=== PATIENT | female | born 1930 | race African-American/Black ===

== ENCOUNTER 2017-06-19 16:13 | Emergency (ER) | payer OTHER ==
[~2017-06-19] VITALS: Ht 167.6 cm; Wt 122.2 kg
[~2017-06-19 16:13] MED LIST: ADULT LOW DOSE81 M1 PO; ALPRAZOLAM0.25 M2 PO; ANTIVERT25 MG PO; ASPIR 8181 M1 PO; ATIVAN0.5 MG PO; BLOOD PRESSURE; BP PILL; CARDIZEM LA180 MG PO; FLONASE ALLERG9.9 ML BOTH NARES; LISINOPRIL10 MG PO; SIMVASTATIN10 MG PO; [UNRECOGNIZED DRUG - REMARK]
[2017-06-19 18:05] LABS: HEMATOCRIT 40.6 % (36.0-46.0); MCH 27.9 PG (29.0-34.0); MCHC 31.5 G/DL (30.0-36.0); MCV 88.6 FL (83-99); MEAN PLAT.VOLUME 10.5 uM^3 (9.5-12.4); PLATELET COUNT 237 K/uL (156-360); RBC DIS.WIDTH-CV 13.2 % (11.8-14.6); RBC DIS.WIDTH-SD 43.2 % (39-53); RED BLOOD COUNT 4.58 M/uL (3.80-5.20); WHITE BLOOD COUNT 7.3 K/uL (4.1-10.2)
[2017-06-19 18:15] LABS: CHLORIDE 111 mEq/L (99-109); POTASSIUM 5.3 mEq/L (3.7-5.4); SODIUM 146 mEq/L (136-147)
[2017-06-19 18:17] LABS: GLUCOSE 101 mg/dL (70-99)
[2017-06-19 18:19] LABS: ANION GAP 12 MEQ/L (2-14); TOTAL BILIRUBIN 0.4 mg/dL (0.0-1.0)
[2017-06-19 18:21] LABS: ALKALINE PHOSPHATASE 141 IU/L (3-129); GFR ESTIMATE (CALCULATED) 35 mL/min/
[2017-06-19 18:22] LABS: UREA NITROGEN (BUN) 32 mg/dL (9-23)
[2017-06-19 18:30] LABS: TROP-I INTERPRETATION NEGATIVE; TROPONIN-I < 0.01 ng/mL (0.0-0.30)
[2017-06-19 20:05] LABS: ADD MIUA? YES; BILIRUBIN NEGATIVE; BLOOD NEGATIVE; COLOR YELLOW ((YELLOW)); GLUCOSE (STRIP) NEGATIVE; KETONES NEGATIVE; LEUKOCYTES LARGE; NITRITE NEGATIVE; PROTEIN (STRIP) NEGATIVE; UROBILINOGEN 0.2 MG/DL (0.2-1.0)
[2017-06-19 20:13] LABS: BACTERIA RARE /HPF; EPITHELIAL CELLS 1+ /HPF; MUCUS TRACE /LPF; UNCLASSIFIED CASTS 0-5 /LPF; WHITE BLOOD CELLS 20-30 /HPF (0-5)
[2017-06-19] MEDS ORDERED: KEFLEX500 MG PO (21:14)
[2017-06-19] MEDS ORDERED: ZOFRAN4 MG PO (21:14)
[2017-06-19 21:28] VITALS: BP 122/49
== END 2017-06-19 21:31 | disposition home or self-care (01) ==
LOC: EME 16:13
PROVIDERS: Emergency Medicine
DX: N39.0 Urinary tract infection, site not specified (principal); R55 Syncope and collapse; I12.9 Hypertensive chronic kidney disease with stage 1 through stage 4 chronic kidney disease, or unspecified chronic kidney disease; N18.9 Chronic kidney disease, unspecified; R11.2 Nausea with vomiting, unspecified; E78.5 Hyperlipidemia, unspecified; F41.9 Anxiety disorder, unspecified; Z87.891 Personal history of nicotine dependence
CPT/HCPCS: 74176; 80053; 81003; 84484; 85027; 87086; 93005; 99281; 99285; J7030